=== PATIENT | male | born 1970 | race Caucasian/White ===

== ENCOUNTER 2018-05-02 18:43 | Emergency (ER) | payer OTHER, SELFPAY ==
[2018-05-02 18:45] VITALS: BP 134/96; PULSE 99; RESP 18; TEMP 37; O2SAT 98; BMI 32.6
--- NOTE | 2018-05-02 19:07 | ED.VISSUMM ---
- ER Visit Summary Date of Service: 05/02/18 Chief Complaint: Choked on steak History of Present Illness: The patient is a 47 M presenting after choking on steak at [facility]. Patient was eating steak and started to choke. Heimlich maneuver was performed. He did spit out a small piece of steak. He feels that there is still steak stuck in his throat and he is unable to swallow. Physical Examination: Vitals are stable. Patient is afebrile. Alert no acute distress. HEENT exam is unremarkable. Neck is supple. Lungs are clear and equal bilaterally. Heart is regular rate and rhythm. Abdomen is soft nontender nondistended. Extremities are unremarkable. Skin is warm and dry. No focal neurologic deficit. Remainder of exam is unremarkable. Emergency Department Course and Treatment: Patient was given glucagon. He is unable to tolerate p.o. Discussed with Dr. Schmidt. She came to evaluate the patient. In preparation for endoscopy the back of his mouth was sprayed with anesthetic. Following this, he had another episode of emesis. He vomited the steak up. He is now able to tolerate p.o. He feels much improved. He is given a prescription for Pepcid. Advised return to ED for worsening complaints. Disposition: Discharge home Impression: Esophageal foreign body, resolved This note was generated with [employer] dictation software. It may contain incorrect words, spelling, and punctuation that were not noted in review of the chart prior to signing ED Disposition - Plan for ED Patient: Chief Complaint: Foreign Body Referrals: Sylvain Carpio MD [Primary Care Provider] -
[2018-05-02] MEDS: Glucagon 1 MG/ML Syringe IM (19:14)
[2018-05-02 19:48] VITALS: PULSE 104; RESP 22; O2SAT 99
--- NOTE | 2018-05-02 19:57 | PCM.CONS.GEN ---
Reason for Consult Date of Consultation: 05/02/18 History of Present Illness: The patient is a 47 year old M presents due to esophageal food impaction-steak. Patient was at [facility] this evening about 630 was having some steak and did not feel like it was able to pass. Patient is unable to swallow his saliva is currently spitting it into an emesis bag. Patient states in his life about 3-4 times he is felt like food is caught however it is always passed previously. Denies any previous scopes. Past Medical History Allergies No Known Allergies Allergy (Verified 05/02/18 18:44) Home Medications: Ambulatory Orders Medication Instructions Recorded Amitriptyline HCl [Elavil] 10 mg PO QHS PRN 05/02/18 Amlodipine [Norvasc] 5 mg PO DAILY 05/02/18 Surgical History: - - Rhinoplasty for deviated septum, left inguinal hernia x2 1 as a child and the one in his 20s with mesh Psychiatric History: No pertinent psych hx Lives: Spouse/ Significant Other Smoking Status: Never smoker - *Family History Maternal History Items: No pertinent history Review of Systems Constitutional: Reports: Anorexia Eyes: Denies: Blurred vision - Physical Exam General: Alert, Oriented x3, Cooperative HEENT: Atraumatic Lungs: Normal air movement Cardiovascular: Regular rate Abdomen: Soft, Non Tender, Non-Distended Extremities: No clubbing, No cyanosis, No edema Vital Signs Temp Pulse Resp BP Pulse Ox 98.6 F 104 H 22 H 134/96 H 99 05/02/18 18:45 05/02/18 19:48 05/02/18 19:48 05/02/18 18:45 05/02/18 19:48 Oxygen Delivery Method Room Air Weight: 221 lb Body Mass Index (BMI) 32.6 Assessment/Plan 47-year-old male with esophageal food impaction?steak 1. I have offered the patient EGD with removal of foreign body for evaluation. I have explained the risks/benefits of the procedure and described the procedure. I have discussed the risks with the patient, including but not limited to: infection, bleeding, perforation of the GI tract requiring emergency surgery, inability to complete the procedure, foreign body going into his trachea/bronchus, complications of anesthesia, etc. - the patient understands and agrees to proceed. Also discussed with patient that if I was unable to relieve the impaction he would need to be transferred to another facility with GI. I have answered all the patient's questions to the patient's satisfaction and the patient has no further questions. Modesta Schmidt M.D. Pager: [phone] [facility] [address] [place] [address], [address] [place] [address] Office: [phone]
--- NOTE | 2018-05-02 20:01 | CON.PCM_ITS ---
Reason for Consult Date of Consultation: 05/02/18 History of Present Illness: The patient is a 47 year old M presents due to esophageal food impaction-steak. Patient was at [facility] this evening about 630 was having some steak and did not feel like it was able to pass. Patient is unable to swallow his saliva is currently spitting it into an emesis bag. Patient states in his life about 3-4 times he is felt like food is caught however it is always passed previously. Denies any previous scopes. Past Medical History Allergies No Known Allergies Allergy (Verified 05/02/18 18:44) Home Medications: Ambulatory Orders Medication Instructions Recorded Amitriptyline HCl [Elavil] 10 mg PO QHS PRN 05/02/18 Amlodipine [Norvasc] 5 mg PO DAILY 05/02/18 Surgical History: - - Rhinoplasty for deviated septum, left inguinal hernia x2 1 as a child and the one in his 20s with mesh Psychiatric History: No pertinent psych hx Lives: Spouse/ Significant Other Smoking Status: Never smoker - *Family History Maternal History Items: No pertinent history Review of Systems Constitutional: Reports: Anorexia Eyes: Denies: Blurred vision - Physical Exam General: Alert, Oriented x3, Cooperative HEENT: Atraumatic Lungs: Normal air movement Cardiovascular: Regular rate Abdomen: Soft, Non Tender, Non-Distended Extremities: No clubbing, No cyanosis, No edema Vital Signs Temp Pulse Resp BP Pulse Ox 98.6 F 104 H 22 H 134/96 H 99 05/02/18 18:45 05/02/18 19:48 05/02/18 19:48 05/02/18 18:45 05/02/18 19:48 Oxygen Delivery Method Room Air Weight: 221 lb Body Mass Index (BMI) 32.6 Assessment/Plan 47-year-old male with esophageal food impaction?steak 1. I have offered the patient EGD with removal of foreign body for evaluation. I have explained the risks/benefits of the procedure and described the procedure. I have discussed the risks with the patient, including but not limited to: infection, bleeding, perforation of the GI tract requiring emergency surgery, inability to complete the procedure, foreign body going into his trachea/bronchus, complications of anesthesia, etc. - the patient understands and agrees to proceed. Also discussed with patient that if I was unable to relieve the impaction he would need to be transferred to another facility with GI. I have answered all the patient's questions to the patient's satisfaction and the patient has no further questions. Modesta Schmidt M.D. Pager: [phone] [facility] [address] [place] [address], [address] [place] [address] Office: [phone]
--- NOTE | 2018-05-02 21:12 | ED.DEP ---
ED Disposition - Plan for ED Patient: Chief Complaint: Foreign Body Instructions: ED Foreign Body Esophageal Rslv Prescriptions: Famotidine [Pepcid] 20 mg PO BID #28 tablet Referrals: Sylvain Carpio MD [Primary Care Provider] -
[2018-05-02] MEDS: Ondansetron 4 MG/2 ML Vial IV (21:30)
[2018-05-02 21:31] VITALS: BP 124/78; PULSE 94; RESP 20; O2SAT 100
[2018-05-02 22:10] VITALS: BP 124/78; PULSE 84; RESP 20; O2SAT 97
--- NOTE | 2018-05-02 22:10 | ED.RN ---
THIS NURSE REVIEWED D/C INSTRUCTIONS WITH PT. PT VERBALIZED UNDERSTANDING OF INSTRUCTIONS. IV D/C. IV CATHETER INTACT. PT TOLERATED WELL. PT DENIES FURTHER NEEDS OR QUESTIONS AT THIS TIME
== END 2018-05-02 22:11 | disposition home or self-care (01) ==
PROVIDERS: Emergency Provider Emergency Medicine; Family Provider Family Medicine; PCP Family Medicine
DX: T18.128A Food in esophagus causing other injury, initial encounter (principal); X58.XXXA Exposure to other specified factors, initial encounter; Y93.9 Activity, unspecified; Y92.9 Unspecified place or not applicable; Y99.9 Unspecified external cause status; I10 Essential (primary) hypertension; G62.9 Polyneuropathy, unspecified; Z79.899 Other long term (current) drug therapy
CPT/HCPCS: 96372; 96374; 99285; A4216; J1610; J2405